=== PATIENT | male | born 2000 | race Caucasian/White ===

== ENCOUNTER 2023-03-11 15:07 | Emergency (ER) | payer SELFPAY ==
[~2023-03-11] VITALS: Ht 182.9 cm; Wt 63.6 kg
[2023-03-11 15:16] VITALS: BP 111/77
== END 2023-03-11 18:09 | disposition left against medical advice (07) ==
LOC: ER 15:09
DX: R07.81 Pleurodynia (principal); M54.9 Dorsalgia, unspecified; Z53.21 Procedure and treatment not carried out due to patient leaving prior to being seen by health care provider
CPT/HCPCS: 99281